=== PATIENT | male | born 1960 | race Caucasian/White ===

== ENCOUNTER 2020-10-23 23:37 | Emergency (ER) | payer SELFPAY ==
[~2020-10-23] VITALS: Ht 175.3 cm; Wt 80.7 kg
[2020-10-24] MEDS ORDERED: CIPRODEX OTIC7.5 ML AS (00:05)
[2020-10-24] MEDS ORDERED: CEPHALEXIN500 MG PO (00:05)
== END 2020-10-24 00:13 | disposition home or self-care (01) ==
LOC: ED 23:37
DX: H60.92 Unspecified otitis externa, left ear (principal); Z88.2 Allergy status to sulfonamides
CPT/HCPCS: 99282